=== PATIENT | female | born 1960 | race Caucasian/White ===

== ENCOUNTER 2018-06-27 08:46 | Inpatient (IN) | payer OTHER ==
[2018-06-27] MEDS ORDERED: ASPIRIN 81 MG TABLET, CHEWABLE PO ONE (09:52)
--- NOTE | 2018-06-27 09:55 | ER Document Report ---
ED Medical Screen (RME) - General Chief Complaint: Leg Pain Stated Complaint: LEG PAIN Time Seen by Provider: 06/27/18 09:52 Mode of Arrival: Ambulatory Information source: Patient Notes: This is a 58-year-old female with a history of arthritis, superficial phlebitis who presents to the emergency room with left calf pain and swelling for the past 2 weeks. Patient states she did have increasing dyspnea on exertion for the last week. 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 She was treated at [facility] the end of April for a superficial phlebitis of the right lower extremity with Keflex and Naprosyn. She states the symptoms in the left Started 2 weeks ago. She does have a [id number] history of smoking but quit 6 years ago and states that " her breathing is never been the same since then). She denies any chest pain. - Related Data Allergies/Adverse Reactions: codeine Adverse Reaction (Mild, Verified 06/27/18 08:52) VOMITING Past Medical History Renal/ Medical History: Denies: Hx Peritoneal Dialysis Physical Exam - Vital signs Vitals: Temp Pulse Resp BP Pulse Ox 98.3 F 113 H 20 160/85 H 93 06/27/18 09:20 06/27/18 09:20 06/27/18 09:20 06/27/18 09:20 06/27/18 09:20 Course - Vital Signs Vital signs: Temp Pulse Resp BP Pulse Ox 98.3 F 113 H 20 160/85 H 93 06/27/18 09:20 06/27/18 09:20 06/27/18 09:20 06/27/18 09:20 06/27/18 09:20
--- NOTE | 2018-06-27 10:30 | RADIOLOGY REPORT (SQ) ---
EXAM DESCRIPTION: CHEST SINGLE VIEW COMPLETED DATE/TIME: 06/27/2018 10:16 am REASON FOR STUDY: sob, crook COMPARISON: None. EXAM PARAMETERS: NUMBER OF VIEWS: One view. TECHNIQUE: Single frontal radiographic view of the chest acquired. RADIATION DOSE: NA LIMITATIONS: None. FINDINGS: LUNGS AND PLEURA: No opacities, masses or pneumothorax. No pleural effusion. MEDIASTINUM AND HILAR STRUCTURES: No masses. Contour normal. HEART AND VASCULAR STRUCTURES: Heart normal in size. Normal vasculature. BONES: No acute findings. Degenerative changes in the spine. HARDWARE: None in the chest. OTHER: No other significant finding. IMPRESSION: NO ACUTE RADIOGRAPHIC FINDING IN THE CHEST. TECHNICAL DOCUMENTATION: JOB ID: [id number] [email or web address]- All Rights Reserved Reading location - IP/workstation name: [email or web address]
[2018-06-27 10:45] LABS: ABSOLUTE BASOPHILS # (AUTO) 0.1 10^3/uL (0.0-0.2); ABSOLUTE EOSINOPHILS # (AUTO) 0.3 10^3/uL (0.0-0.6); ABSOLUTE LYMPHOCYTES (AUTO) 2.6 10^3/uL (0.5-4.7); ABSOLUTE MONOCYTES (AUTO) 0.9 10^3/uL (0.1-1.4); ABSOLUTE NEUT (AUTO) 10.6 10^3/uL (1.7-8.2); BASOPHILS % (AUTO) 0.8 % (0-2); EOSINOPHILS % (AUTO) 2.1 % (0-6); HEMATOCRIT 41.9 % (36.0-47.0); HEMOGLOBIN 13.7 g/dL (12.0-15.5); LYMPHOCYTES % (AUTO) 18.2 % (13-45); MEAN CORPUSCULAR HEMOGLOBIN 29.8 pg (27.0-33.4); MEAN CORPUSCULAR HGB CONC 32.6 g/dL (32.0-36.0); MEAN CORPUSCULAR VOLUME 92 fl (80-97); MONOCYTES % (AUTO) 6.1 % (3-13); PLATELET COUNT 201 10^3/uL (150-450); RED BLOOD COUNT 4.58 10^6/uL (3.72-5.28); RED CELL DISTRIBUTION WIDTH 13.5 % (11.5-14.0); SEGMENTED NEUTROPHILS % (AUTO) 72.8 % (42-78); TOTAL CELLS COUNTED % (AUTO) 100 %; WHITE BLOOD COUNT 14.5 10^3/uL (4.0-10.5)
[2018-06-27 11:05] LABS: ALANINE AMINOTRANSFERASE 10 U/L (9-52); ALBUMIN 3.9 g/dL (3.5-5.0); ALKALINE PHOSPHATASE 128 U/L (38-126); ANION GAP 12 (5-19); ASPARTATE AMINO TRANSFERASE 20 U/L (14-36); BILIRUBIN,DIRECT 0.3 mg/dL (0.0-0.4); BILIRUBIN,TOTAL 0.7 mg/dL (0.2-1.3); BLOOD UREA NITROGEN 10 mg/dL (7-20); CARBON DIOXIDE 29 mmol/L (22-30); CHLORIDE 101 mmol/L (98-107); CREATINE KINASE 56 U/L (30-135); GLUCOSE 313 mg/dL (75-110); POTASSIUM 4.2 mmol/L (3.6-5.0); SODIUM 142.4 mmol/L (137-145)
[2018-06-27 11:16] LABS: CREATINE KINASE MB 0.67 ng/mL (<4.55)
[2018-06-27 11:17] LABS: TROPONIN I < 0.012 ng/mL
--- NOTE | 2018-06-27 11:52 | ER Document Report ---
ED Extremity Problem, Lower - General Chief Complaint: Leg Pain Stated Complaint: LEG PAIN Time Seen by Provider: 06/27/18 09:52 Mode of Arrival: Ambulatory Notes: Patient complains of pain and swelling in her left lower leg for about 2 weeks. She recalls no injury or unusual activity. 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 Pain is worse when the patient is up and walking and better when she is recumbent. She says it feels "swollen and tight ". Never had this problem before. Patient has had her left knee injected 3 times back in February and March of this year but not in the past month or more. In April, patient had an "infected vein" at the top of the patient's right knee. She had an ultrasound and it showed the vein without clot in it and she was treated with antibiotics in the problem resolved. Patient also complains of some shortness of breath and dyspnea on exertion for the past week. She said that suddenly began when she got up out of a chair and tried to walk about a week ago and has persisted ever since. Denies any chest pains. Never had any problem with blood clots in her lungs or legs or elsewhere. Not on any regular medications. Denies any fever or chills. Former smoker, stopped about 6 years ago. - Related Data Allergies/Adverse Reactions: codeine Adverse Reaction (Mild, Verified 06/27/18 08:52) VOMITING Past Medical History - General Information source: Patient - Social History Smoking Status: Former Smoker - Stopped 6 years ago Family History: Reviewed & Not Pertinent Patient has suicidal ideation: No Patient has homicidal ideation: No - Past Medical History Cardiac Medical History: Denies: Hx Congestive Heart Failure, Hx Coronary Artery Disease, Hx DVT, Hx Hypertension, Hx Pulmonary Embolism Skin Medical History: Denies Hx Cellulitis Review of Systems - Review of Systems Notes: REVIEW OF SYSTEMS: CONSTITUTIONAL : Denies fever. EENT: Denies eye, ear, nose or mouth or throat pain or other symptoms. CARDIOVASCULAR: Denies chest pain. RESPIRATORY: Denies cough, chest congestion, but has experienced shortness of breath for the past week. See HPI. GASTROINTESTINAL: Denies abdominal pain or nausea, vomiting, or diarrhea. GENITOURINARY: Denies difficulty or painful urinating, urinary frequency, blood in urine. MUSCULOSKELETAL: Denies back or neck pain. Denies joint pain or swelling. See HPI regarding left lower leg. SKIN: Denies rash or skin lesions. NEUROLOGICAL: Denies LOC or altered mental status. Denies headache. Denies sensory loss or motor deficits. ALL OTHER SYSTEMS REVIEWED AND NEGATIVE. Physical Exam - Vital signs Vitals: Temp Pulse Resp BP Pulse Ox 98.3 F 113 H 20 160/85 H 93 06/27/18 09:20 06/27/18 09:20 06/27/18 09:20 06/27/18 09:20 06/27/18 09:20 Interpretation: Tachycardic - Heart rate 113 in triage Notes: PHYSICAL EXAMINATION: GENERAL: Well-appearing, in no acute distress. HEAD: Atraumatic, normocephalic. EYES: Pupils equal round and reactive to light, extraocular movements intact. ENT: oropharynx clear without exudates. Moist mucous membranes. NECK: Normal range of motion, supple. LUNGS: Breath sounds clear and equal bilaterally. HEART: Regular rate and rhythm without murmurs. Patient has many small varicose veins of both lower extremities. ABDOMEN: Soft, nontender. No guarding or rebound. No masses. BACK: No tenderness throughout entire back. EXTREMITIES: I do not see much difference in size between the 2 lower extremities. However, there is notable increased warmth to the touch of the left lower leg compared to the right lower leg. No significant erythema present , however. Patient's tenderness is confined to the back of the left lower leg proximally. Good dorsalis pedis pulse in the left foot. Otherwise, normal range of motion without pain. NEUROLOGICAL: Normal speech, limping gait because of pain. Normal sensory, motor, and reflex exams. Awake, alert, and oriented x3. PSYCH: Normal mood, normal affect. SKIN: Warm, dry, no rashes. Course - Re-evaluation Re-evalutation: 06/27/18 13:08 Spoke with hospitalist who will admit the patient for anticoagulation. CTA being ordered. Radiologist called me with report of the CTA study showing bilateral pulmonary emboli. I contacted Dr. Sandoval at extension [phone] and made her aware of these findings. 06/27/18 19:32 - Vital Signs Vital signs: Temp Pulse Resp BP Pulse Ox 99.3 F 102 H 16 134/62 H 96 06/27/18 15:08 06/27/18 15:42 06/27/18 15:42 06/27/18 15:08 06/27/18 15:42 - Laboratory Result Diagrams: 06/27/18 10:28 06/27/18 10:28 Laboratory results interpreted by me: 06/27/18 06/27/18 10:28 10:28 WBC 14.5 H Absolute Neutrophils 10.6 H Glucose 313 H Alkaline Phosphatase 128 H - Diagnostic Test Radiology reviewed: Image reviewed, Reports reviewed - Patient's venous Doppler shows extensive clot throughout the entire left leg including the superficial saphenous vein. Radiology results interpreted by me: 06/27/18 11:56 Chest x-ray is normal. - EKG Interpretation by Wy EKG shows normal: Sinus rhythm Rate: Tachycardia Voltage: Consistant with LVH Discharge - Discharge Clinical Impression: Deep vein thrombosis (DVT) of left lower extremity Condition: Stable Disposition: ADMITTED INPATIENT Admitting Provider: Hospitalist Unit Admitted: Telemetry
--- NOTE | 2018-06-27 12:32 | RADIOLOGY REPORT (SQ) ---
EXAM DESCRIPTION: VENOUS UNILATERAL LOWER COMPLETED DATE/TIME: 06/27/2018 12:16 pm REASON FOR STUDY: lle paiun and swelling COMPARISON: None. TECHNIQUE: Dynamic and static baum scale and color images acquired of the left leg venous system. Se lected spectral images acquired with additional compression and augmentation maneuvers. The contralat eral common femoral vein and saphenofemoral junction were also imaged. Images stored on PACS. LIMITATIONS: None. FINDINGS: COMMON FEMORAL: Diffuse thrombus. FEMORAL: Diffuse thrombus. POPLITEAL: Diffuse thrombus. CALF VESSELS: Diffuse thrombus. GSV and SSV: Thrombus in the SSV. Patent GSV. ANY DEEP VENOUS INSUFFICIENCY: Not evaluated. ANY EVIDENCE OF POPLITEAL CYST: No. OTHER: No other significant finding. CONTRALATERAL COMMON FEMORAL VEIN AND SAPHENOFEMORAL JUNCTION: Normal phasicity, compression and augmentation. No visualized echogenic material on baum scale. No de fects on color images. IMPRESSION: DIFFUSE DEEP VENOUS THROMBOSIS THROUGHOUT THE LEFT LEG. THERE IS ALSO THROMBUS IN THE S SV. TECHNICAL DOCUMENTATION: JOB ID: [id number] [email or web address]- All Rights Reserved Reading location - IP/workstation name: [email or web address]
--- NOTE | 2018-06-27 13:41 | PDOC H&P ---
History of Present Illness Admission Date/PCP: 06/27/2018 Patient complains of: Left lower extremity pain, dyspnea on exertion History of Present Illness: VENKATESH BASHIR is a 58 year old female former heavy smoker of 30 years quit 6 years ago who presented to ED complaining of worsening, crampy, nonradiating left calf pain for last weeks associated with swelling, dyspnea on exertion and mild nonbloody nonproductive cough. Denies any recent trauma, travel, surgery, immobilization or any history of malignancy, weight changes. Does not take any medication except for occasional ibuprofen on the days that she works. Denies any fever, chest pain, nausea, vomiting, diarrhea, constipation, urinary systems, heat or cold intolerance, skin changes. In ED a left lower extremity ultrasound showed extensive DVT. Hospitalist was consulted for admission. 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 Past Medical History Cardiac Medical History: Denies: Congestive Heart Failure, Coronary Artery Disease, DVT, Hypertension , Pulmonary Embolism Social History Smoking Status: Former Smoker - Stopped 6 years ago Family History Family History: Reviewed & Not Pertinent Parental Family History Reviewed: Yes Children Family History Reviewed: Yes Sibling(s) Family History Reviewed.: Yes Medication/Allergy Allergies/Adverse Reactions: codeine Adverse Reaction (Mild, Verified 06/27/18 08:52) VOMITING Review of Systems Review of Systems: As per HPI Physical Exam Vital Signs: Temp Pulse Resp BP Pulse Ox 98.3 F 113 H 18 138/85 H 94 06/27/18 09:20 06/27/18 09:20 06/27/18 12:01 06/27/18 12:01 06/27/18 12:01 Intake & Output 06/26/18 06/27/18 06/28/18 07:59 06:59 06:59 Weight 138 kg General appearance: PRESENT: morbidly obese Head exam: PRESENT: atraumatic, normocephalic Neck exam: ABSENT: carotid bruit, JVD, lymphadenopathy, thyromegaly Respiratory exam: PRESENT: clear to auscultation cuate. ABSENT: rales, rhonchi, wheezes Cardiovascular exam: PRESENT: RRR. ABSENT: diastolic murmur, rubs, systolic murmur GI/Abdominal exam: PRESENT: normal bowel sounds, soft. ABSENT: distended, guarding, mass, organolmegaly, rebound, tenderness Extremities exam: PRESENT: calf tenderness, other - Negative Homans sign Musculoskeletal exam: PRESENT: full ROM, normal inspection Neurological exam: PRESENT: alert, awake, oriented to person, oriented to place , oriented to time, oriented to situation, CN II-XII grossly intact. ABSENT: motor sensory deficit Skin exam: PRESENT: dry, intact, warm. ABSENT: cyanosis, rash Results Laboratory Results: 06/27/18 10:28 06/27/18 10:28 06/27/18 06/27/18 10:28 10:28 WBC 14.5 H RBC 4.58 Hgb 13.7 Hct 41.9 MCV 92 MCH 29.8 MCHC 32.6 RDW 13.5 Plt Count 201 Seg Neutrophils % 72.8 Lymphocytes % 18.2 Monocytes % 6.1 Eosinophils % 2.1 Basophils % 0.8 Absolute Neutrophils 10.6 H Absolute Lymphocytes 2.6 Absolute Monocytes 0.9 Absolute Eosinophils 0.3 Absolute Basophils 0.1 Sodium 142.4 Potassium 4.2 Chloride 101 Carbon Dioxide 29 Anion Gap 12 BUN 10 Creatinine 0.52 Est GFR ( Amer) > 60 Est GFR (Non-Af Amer) > 60 Glucose 313 H Calcium 9.0 Total Bilirubin 0.7 AST 20 ALT 10 Alkaline Phosphatase 128 H Total Protein 7.0 Albumin 3.9 06/27/18 06/27/18 10:28 10:28 Creatine Kinase 56 CK-MB (CK-2) 0.67 Troponin I < 0.012 Impressions: Chest X-Ray 06/27/18 09:52 IMPRESSION: NO ACUTE RADIOGRAPHIC FINDING IN THE CHEST. Venous Doppler Study 06/27/18 09:53 IMPRESSION: DIFFUSE DEEP VENOUS THROMBOSIS THROUGHOUT THE LEFT LEG. THERE IS ALSO THROMBUS IN THE SSV. Assessment & Plan - Diagnosis (1) Deep vein thrombosis (DVT) of left lower extremity Is this a current diagnosis for this admission?: Yes Plan: Unprovoked. Lower extremity venous Doppler positive for diffuse deep vein thrombosis throughout the left leg and superficial saphenous vein. Mild leukocytosis with normal differentials. CMP within normal type for hyperglycemia. Vitals are stable except for mild tachycardia. EKG shows sinus tachycardia with left ventricular hypertrophy. Negative troponins CTA to rule out PE followed by 2D echo if positive to rule out for any right heart strain. Start on IV therapeutic Lovenox to be transitioned to p.o. anticoagulation. Admit to telemetry. Monitor vitals. (2) Morbid obesity with BMI of 40.0-44.9, adult Is this a current diagnosis for this admission?: Yes Plan: Diet and lifestyle modification. (3) Pre-diabetes Is this a current diagnosis for this admission?: Yes Plan: Will obtain a new A1c. Continue Accu-Chek, diabetic diet. Diabetic education. Diet and lifestyle modification.
[2018-06-27] MEDS ORDERED: GUAIFENESIN SYRP 200 MG/10 ML UDC PO PRN (13:43)
[2018-06-27] MEDS ORDERED: IPRATROPIUM/ALBUTEROL 0.5-2.5 MG/3 ML AMPUL NEB PRN (13:43)
[2018-06-27] MEDS ORDERED: DEXTROSE 50%-WATER 25 GM/50 ML DISP.SYRIN IV PRN ×2 (13:55)
[2018-06-27] MEDS ORDERED: DEXTROSE 40% GEL 15 GM TUBE PO PRN ×2 (13:55)
[2018-06-27] MEDS ORDERED: GLUCAGON,HUMAN RECOMB 1 MG INJ IM PRN (13:55)
[2018-06-27 14:23] LABS: INTERNATIONAL RATION (INR) 1.07; PROTHROMBIN TIME 14.5 SEC (11.4-15.4)
[2018-06-27 14:57] LABS: CHOLESTEROL 125.53 mg/dL (0-200); TRIGLYCERIDES 90 mg/dL (<150)
[2018-06-27 15:07] LABS: DIRECT LDL 83 mg/dL (<100)
[2018-06-27] MEDS: NORMAL SALINE 1000 ML 1,000 ML IV PRN (15:23)
[2018-06-27] MEDS: ACETAMINOPHEN 325 MG TABLET PO PRN (15:53)
[2018-06-27] MEDS: ENOXAPARIN SODIUM INJ 150 MG/1 ML DISP.SYRIN SUBCUT SCH (15:53)
[2018-06-27] MEDS: LANSOPRAZOLE 15 MG TAB.RAP.DR PO SCH (17:38)
[2018-06-27] MEDS ORDERED: ACETAMINOPHEN WITH CODEINE #3 TABLET PO PRN (17:44)
--- NOTE | 2018-06-27 19:38 | RADIOLOGY REPORT (SQ) ---
EXAM DESCRIPTION: CTA CHEST COMPLETED DATE/TIME: 06/27/2018 7:08 pm REASON FOR STUDY: S OB, DVT today on Doppler COMPARISON: None. TECHNIQUE: CT scan of the chest performed using helical scanning technique with dynamic intravenous contrast injection. Images reviewed with lung, soft tissue and bone windows. Reconstructed coronal and sagittal MPR images reviewed. Additional 3 dimensional post-processing performed to develop Maximal Intensity Projection images ([place] P). All images stored on PACS. All CT scanners at this facility use dose modulation, iterative reconstruction, and/or weight based d osing when appropriate to reduce radiation dose to as low as reasonably achievable (ALARA). [facility]: Dose Right [facility]: CareDose [facility]: Dose Right [facility]: Teradose 4D [facility]: [employer] CONTRAST TYPE AND DOSE: contrast/concentration: Isovue mg/ml; Total Contrast Delivered: 84.0 ml; To janneth Saline Delivered: 68.9 ml Contrast bolus adequate for pulmonary arteries and aorta. RENAL FUNCTION: GFR > 60. RADIATION DOSE: CT Rad equipment meets quality standard of care and radiation dose reduction techniq ues were employed. CTDIvol: 39.2 - 66.1 mGy. DLP: 1472 mGy-cm. . LIMITATIONS: None. FINDINGS: LUNGS AND PLEURA: No masses, infiltrates, or pneumothorax. No pleural effusions or pleura l calcifications. AORTA AND GREAT VESSELS: No aneurysm. Contrast bolus not optimized for the aorta. HEART: No pericardial effusion. No significant coronary artery calcifications. PULMONARY ARTERIES: Extensive emboli visualized in the main pulmonary arteries and the majority of th e segmental branches, there is a thin saddle embolus component spanning the pulmonary artery bifurcat ion. HILAR AND MEDIASTINAL STRUCTURES: No identified masses or abnormal nodes. HARDWARE: None in the chest. UPPER ABDOMEN: No significant findings. Limited exam. THYROID AND OTHER SOFT TISSUES: No masses. No adenopathy. BONES: No acute or significant finding. 3D MIPS: Confirm above findings. OTHER: No other significant finding. IMPRESSION: Extensive emboli visualized in the main pulmonary arteries and the majority of the segme ntal branches, there is a thin saddle embolus component spanning the pulmonary artery bifurcation. COMMENT: Results called to the ordering physician at 1930 hours. Results were confirmed and read jayshree braun. Quality ID # [id number]: Final reports with documentation of one or more dose reduction techniques (e.g., Au tomated exposure control, adjustment of the mA and/or kV according to patient size, use of iterative reconstruction technique) TECHNICAL DOCUMENTATION: JOB ID: [id number] [place]-[id number] 2010 [employer]- All Rights Reserved Reading location - IP/workstation name: [email or web address]
--- NOTE | 2018-06-27 22:17 | EKG REPORT ---
SEVERITY:- ABNORMAL ECG - SINUS TACHYCARDIA LEFT VENTRICULAR HYPERTROPHY NONSPECIFIC T ABNORMALITIES, INFERIOR LEADS : Confirmed by: Yamile Lucas MD 27-Jun-2018 22:16:33
[2018-06-28] MEDS: ENOXAPARIN SODIUM INJ 150 MG/1 ML DISP.SYRIN SUBCUT SCH ×3 (00:11→21:35)
[2018-06-28] MEDS: NORMAL SALINE 1000 ML 1,000 ML IV PRN (03:54)
[2018-06-28 05:07] LABS: HEMATOCRIT 36.6 % (36.0-47.0); HEMOGLOBIN 12.4 g/dL (12.0-15.5); MEAN CORPUSCULAR HEMOGLOBIN 30.3 pg (27.0-33.4); MEAN CORPUSCULAR HGB CONC 33.9 g/dL (32.0-36.0); MEAN CORPUSCULAR VOLUME 90 fl (80-97); PLATELET COUNT 165 10^3/uL (150-450); RED BLOOD COUNT 4.09 10^6/uL (3.72-5.28); RED CELL DISTRIBUTION WIDTH 13.5 % (11.5-14.0); WHITE BLOOD COUNT 10.9 10^3/uL (4.0-10.5)
[2018-06-28 05:29] LABS: ALANINE AMINOTRANSFERASE 22 U/L (9-52); ALBUMIN 3.2 g/dL (3.5-5.0); ALKALINE PHOSPHATASE 89 U/L (38-126); ANION GAP 11 (5-19); ASPARTATE AMINO TRANSFERASE 16 U/L (14-36); BILIRUBIN,DIRECT 0.2 mg/dL (0.0-0.4); BILIRUBIN,TOTAL 0.7 mg/dL (0.2-1.3); BLOOD UREA NITROGEN 10 mg/dL (7-20); CALCIUM 8.4 mg/dL (8.4-10.2); CARBON DIOXIDE 26 mmol/L (22-30); CHLORIDE 105 mmol/L (98-107); GLUCOSE 143 mg/dL (75-110); POTASSIUM 4.2 mmol/L (3.6-5.0); SODIUM 141.9 mmol/L (137-145); TOTAL PROTEIN 5.9 g/dL (6.3-8.2)
[2018-06-28] MEDS: LANSOPRAZOLE 15 MG TAB.RAP.DR PO SCH ×2 (05:56→16:51)
[2018-06-28] MEDS: INSULIN LISPRO 100 UNIT/ML 3 ML VIAL SUBCUT PRN (08:16)
[2018-06-28] MEDS ORDERED: ONDANSETRON 4 MG TAB.RAPDIS PO PRN (09:22)
[2018-06-28] MEDS ORDERED: ACETAMINOPHEN WITH CODEINE #3 TABLET PO PRN (09:22)
--- NOTE | 2018-06-28 10:50 | PDOC PROGRESS REPORT ---
Subjective Progress Note for:: 06/28/18 Subjective:: VENKATESH BASHIR is a 58 year old female former heavy smoker of 30 years quit 6 years ago who presented to ED complaining of worsening, crampy, nonradiating left calf pain for last weeks associated with swelling, dyspnea on exertion and mild nonbloody nonproductive cough. Denies any recent trauma, travel, surgery, immobilization or any history of malignancy, weight changes. Does not take any medication except for occasional ibuprofen on the days that she works. Denies any fever, chest pain, nausea, vomiting, diarrhea, constipation, urinary systems, heat or cold intolerance, skin changes. In ED a left lower extremity ultrasound showed extensive DVT. Hospitalist was consulted for admission. 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 Patient is 07/08/2018. No acute events overnight. Patient is resting comfortably in her bed denying any shortness of breath, chest pain, nausea, vomiting, diarrhea, constipation. She is stating that she feels like her left lower extremity is more swollen than the right side however it does not hurt. Reason For Visit: LEFT LOWER EXTREMITY DVT Physical Exam Vital Signs: Temp Pulse Resp BP Pulse Ox 98.6 F 72 16 126/77 H 99 06/28/18 07:28 06/28/18 07:28 06/28/18 07:28 06/28/18 07:28 06/28/18 07:28 Intake & Output 06/27/18 06/28/18 06/29/18 06:59 06:59 06:59 Intake Total 1000 533 Output Total 400 Balance 600 533 Weight 142.2 kg General appearance: PRESENT: no acute distress, morbidly obese, well-developed, well-nourished Respiratory exam: PRESENT: clear to auscultation cuate. ABSENT: rales, rhonchi, wheezes Cardiovascular exam: PRESENT: RRR. ABSENT: diastolic murmur, rubs, systolic murmur Pulses: PRESENT: normal dorsalis pedis pul GI/Abdominal exam: PRESENT: normal bowel sounds, soft. ABSENT: distended, guarding, mass, organolmegaly, rebound, tenderness Extremities exam: PRESENT: full ROM, pedal edema, other - Mild swelling of the left lower extremity. Negative for any tenderness. No erythema or any sign of infection. ABSENT: calf tenderness, clubbing Results Laboratory Results: 06/28/18 04:13 06/28/18 04:13 06/28/18 06/28/18 04:13 04:13 WBC 10.9 H RBC 4.09 Hgb 12.4 Hct 36.6 MCV 90 MCH 30.3 MCHC 33.9 RDW 13.5 Plt Count 165 Sodium 141.9 Potassium 4.2 Chloride 105 Carbon Dioxide 26 Anion Gap 11 BUN 10 Creatinine 0.48 L Est GFR ( Amer) > 60 Est GFR (Non-Af Amer) > 60 Glucose 143 H Calcium 8.4 Total Bilirubin 0.7 AST 16 ALT 22 Alkaline Phosphatase 89 Total Protein 5.9 L Albumin 3.2 L 06/27/18 13:38 Troponin I < 0.012 Impressions: Chest X-Ray 06/27/18 09:52 IMPRESSION: NO ACUTE RADIOGRAPHIC FINDING IN THE CHEST. Venous Doppler Study 06/27/18 09:53 IMPRESSION: DIFFUSE DEEP VENOUS THROMBOSIS THROUGHOUT THE LEFT LEG. THERE IS ALSO THROMBUS IN THE SSV. Chest/Abdomen CTA 06/27/18 13:05 IMPRESSION: Extensive emboli visualized in the main pulmonary arteries and the majority of the segmental branches, there is a thin saddle embolus component spanning the pulmonary artery bifurcation. Assessment & Plan - Diagnosis (1) Deep vein thrombosis (DVT) of left lower extremity Is this a current diagnosis for this admission?: Yes Plan: Unprovoked. No recent trauma, long distance travel, immobilization, surgery, negative family history. She has 1 son and has history of 2 first trimester miscarriages. No history of malignancy, Lower extremity venous Doppler positive for diffuse deep vein thrombosis throughout the left leg and superficial saphenous vein. Leukocytosis improvin. Normal differentials. CMP within normal except for hyperglycemia. Vitals are stable except for mild tachycardia. Continue therapeutic Lovenox. Patient prefers to go home on new anticoagulants rather than Coumadin. Workup for factor V Leyden, prothrombin gene mutation, Antithrombin III deficiency, protein C, protein S deficiency ordered. (2) Pulmonary embolism Is this a current diagnosis for this admission?: Yes Plan: CTA positive for extensive pulmonary embolus. Vitals are stable. Continue therapeutic Lovenox. Early ambulation. Follow-up 2D echo and hyper coagulable state workup. If positive will consult hematology. (3) Morbid obesity with BMI of 40.0-44.9, adult Is this a current diagnosis for this admission?: Yes Plan: Diet and lifestyle modification. (4) Diabetes mellitus, type II Is this a current diagnosis for this admission?: Yes Plan: A1c on admission 9%. Continue Accu-Chek, long-acting insulin, sliding scale. Adjust dosage as needed. Patient can be discharged on metformin upon discharge to follow-up with PCP. Consult diabetic education. (5) Dyslipidemia associated with type 2 diabetes mellitus Is this a current diagnosis for this admission?: Yes Plan: ASCVD more than 9%. Positive risk factors such as diabetes positive history of CAD and a stroke in first degree relatives. Will start on high intensity statins. Follow-up with PCP for evaluation of LFTs.
[2018-06-28] MEDS: ASPIRIN 81 MG TABLET, CHEWABLE PO SCH (11:06)
--- NOTE | 2018-06-28 12:33 | XCELERA REPORT ---
[address] [address] Transthoracic Echocardiogram Report Name: VENKATESH BASHIR Age: 58 yrs Gender: Female : 1960 Patient Status: Inpatient Patient Location: [address] [place], [place] [address] Study Date: 06/28/2018 10:29 AM Height: 66 in Weight: 300 lb BSA: 2.4 m2 Procedure: A complete two-dimensional transthoracic echocardiogram was performed (2D, M-mode, spectral and color flow Doppler). The study was technically adequate with some images being suboptimal in quality. Reason For Study: Large PE Ordering Physician: VLAD DIANA Performed By: Fariba Barillas Interpretation Summary The left ventricular ejection fraction is normal. There is borderline concentric left ventricular hypertrophy. The left ventricle is grossly normal size. Doppler measurements suggest pseudonormalized left ventricular relaxation, which is associated with grade II/IV or mild to moderate diastolic dysfunction Wall motion cannot be accurately commented on, but no definite regional wall motion abnormalities noted. The right ventricular systolic function is borderline reduced. Borderline right ventricular enlargement. The right atrium is normal in size Borderline left atrial enlargement. There is a mild amount of mitral regurgitation There is no mitral valve stenosis. There is no aortic valve stenosis No aortic regurgitation is present. There is a trace or physiologic amount of tricuspid regurgitation Tricuspid regurgitation jet envelope not well defined to measure RV systolic pressure accurately. The inferior vena cava appeared normal and decreased < 50% with respiration (RAP 10-15 mmHg) There is no pericardial effusion. MMode/2D Measurements & Calculations RVDd: 3.6 cm LVIDd: 6.0 cm FS: 29.3 % Ao root diam: 2.9 cm IVSd: 1.0 cm LVIDs: 4.2 cm EDV(Teich): 178.5 ml Ao root area: 6.4 cm2 LVPWd: 0.97 cm ESV(Teich): 79.7 ml LA dimension: 3.6 cm EF(Teich): 55.4 % Doppler Measurements & Calculations MV E max meagan: MV P1/2t max meagan: Ao V2 max: LV V1 max P.6 cm/sec 69.1 cm/sec 135.7 cm/sec 4.1 mmHg MV A max meagan: MV P1/2t: 62.5 msec Ao max PG: LV V1 max: 94.8 cm/sec MVA(P1/2t): 3.5 cm2 7.4 mmHg 101.2 cm/sec MV E/A: 0.72 MV dec slope: 324.0 cm/sec2 MV dec time: 0.23 sec PA V2 max: MV P1/2t-pr_phl: 79.5 cm/sec 62.5 msec PA max P.5 mmHg Left Ventricle The left ventricle is grossly normal size. There is borderline concentric left ventricular hypertrophy. The left ventricular ejection fraction is normal. Doppler measurements suggest pseudonormalized left ventricular relaxation, which is associated with grade II/IV or mild to moderate diastolic dysfunction. Wall motion cannot be accurately commented on, but no definite regional wall motion abnormalities noted. Right Ventricle Borderline right ventricular enlargement. There is normal right ventricular wall thickness. The right ventricular systolic function is borderline reduced. Atria The right atrium is normal in size. Borderline left atrial enlargement. Interarterial septum not well visualized and not well dopplered. Cannot comment on ASD/PFO presence. Mitral Valve The mitral valve is grossly normal. There is no mitral valve stenosis. There is a mild amount of mitral regurgitation. Aortic Valve The aortic valve is not well visualized secondary to technical limitations. There is no aortic valve stenosis. No aortic regurgitation is present. Tricuspid Valve The tricuspid valve is not well visualized secondary to technical limitations. There is no tricuspid stenosis. There is a trace or physiologic amount of tricuspid regurgitation. Tricuspid regurgitation jet envelope not well defined to measure RV systolic pressure accurately. Pulmonic Valve The pulmonic valve is not well visualized. Great Vessels The aortic root is not well visualized but is probably normal size. The inferior vena cava appeared normal and decreased < 50% with respiration (RAP 10-15 mmHg). Effusions There is no pericardial effusion. : VLAD DIANA > Chepe Carrillo
[2018-06-28 14:43] LABS: APPEARANCE,URINE SLIGHTLY-CLOUDY; BILIRUBIN,URINE NEGATIVE (NEGATIVE); COLOR,URINE YELLOW; GLUCOSE, URINE 50 mg/dL (NEGATIVE); KETONES,URINE TRACE mg/dL (NEGATIVE); LEUKOCYTE ESTERASE,URINE NEGATIVE (NEGATIVE); NITRITE,URINE NEGATIVE (NEGATIVE); PROTEIN,URINE NEGATIVE (NEGATIVE); URINE SPECIFIC GRAVITY 1.024
[2018-06-28] MEDS: ATORVASTATIN CALCIUM 40 MG TABLET PO SCH (21:33)
[2018-06-28] MEDS: ACETAMINOPHEN 325 MG TABLET PO PRN (21:34)
[2018-06-28] MEDS ORDERED: ATORVASTATIN CALCIUM 20 MG TABLET PO SCH (22:00)
[2018-06-28] MEDS ORDERED: INSULIN GLARGINE,HUM.REC.ANLOG 300 UNIT/3 ML INSULN.PEN SUBCUT SCH ×2 (22:00)
[2018-06-29] MEDS: LANSOPRAZOLE 15 MG TAB.RAP.DR PO SCH (05:15)
[2018-06-29] MEDS: ASPIRIN 81 MG TABLET, CHEWABLE PO SCH (09:40)
[2018-06-29] MEDS: ACETAMINOPHEN 325 MG TABLET PO PRN ×2 (09:49→21:37)
[2018-06-29] MEDS ORDERED: APIXABAN 5 MG TABLET PO SCH (10:00)
--- NOTE | 2018-06-29 11:46 | CONSULTATION REPORT E ---
Consultation Report NAME: VENKATESH BASHIR : 1960 AGE: 58Y DATE: 06/28/2018 ROOM: 319 A TO: SANDER MAYORGA M.D. FROM: THELMA PRADHAN M.D. Requesting Physician HISTORY OF PRESENT ILLNESS: The patient is a 58-year-old female admitted yesterday because of increased shortness of breath. She claims that she is gradually becoming more short of breath over the last 1 or 2 weeks and she developed severe left calf pain and left lower extremity swelling over the last 2 to 3 days. The few hours prior to admission dyspnea worsened with chest pain; thus, she went to the Emergency Room and was admitted. Patient had a chest CTA showing large blood clots in the main pulmonary arteries, more on the right than on the left side. The patient was started on anticoagulation. She had an echo done midnight last night showing absence of right ventricle overload or Wing sign. The right ventricle appeared normal. Patient denies any fever, chills, increased cough or purulent sputum production, or hemoptysis. PAST MEDICAL HISTORY: Congestive heart failure, coronary artery disease, recent DVT, hypertension, and pulmonary embolism. SOCIAL HISTORY: The patient was a smoker, stopped over 6 years ago. FAMILY HISTORY: Denies any significant family history. ALLERGIES: CODEINE causing vomiting. REVIEW OF SYSTEMS: CONSTITUTIONAL: No fever or chills. EYES: No jaundice or pallor. EARS, NOSE, AND THROAT: No ear drainage noted. No nasal discharge. HEAD AND NECK: No neck pain. RESPIRATORY: Complains about increasing paroxysmal nocturnal dyspnea and chest tightness. Denies any increased cough, purulent sputum production, or hemoptysis. CARDIAC: No history of angina. Complains of chest tightness and high blood pressure. ABDOMEN: Denies any nausea, vomiting, or diarrhea. No dysuria or hematuria. EXTREMITIES: Left lower extremity with calf tenderness. PHYSICAL EXAMINATION: GENERAL: The patient is awake, alert, coherent, oriented x3. VITAL SIGNS: Afebrile (but distressed with temperature 98.9 with a T-max of 98.9). Pulse rate 79, blood pressure 134/74, respiratory rate is 18, saturation 100% on room air. EYES: No jaundice or pallor. EARS, NOSE, AND THROAT: No ear drainage. No nasal discharge. CHEST AND LUNGS: No wheezing, no rhonchi, no coarse crackles. CARDIOVASCULAR: S1, S2 distinct. Normal rate, regular rhythm. ABDOMEN: Flabby. Positive bowel sounds. Soft, nondistended. EXTREMITIES: No joint swelling. Left calf swelling and tenderness. No cellulitis. LABORATORY: CBC done today showed a white count of 10.9, hemoglobin 12.4, hematocrit is 36.6, platelet count is 165. PT done yesterday was 14.5 and INR was 1.07. Chemistry done today shows sodium is 141, potassium is 4.2, chloride 105, CO2 26, BUN 10, creatinine 0.48, glucose 143, calcium is 8.4. SGOT is 16, SGPT 22, alkaline phos 89, total protein 5.9, albumin is 3.2. Chest CT scan showing large blood clot in the main pulmonary arteries, more on the right than on the left side. ASSESSMENT: 1. Acute pulmonary embolism, currently appears hemodynamically stable. Symptoms improving. Currently on subcutaneous Lovenox. 2. Morbid obesity, possible obesity hypoventilation syndrome. PLAN AND RECOMMENDATIONS: 1. Continue Lovenox for the next 2 to 5 days. If patient remains hemodynamically stable, may start the patient on Xarelto p.o. or Eliquis p.o. as an outpatient. 2. Pulmonary Clinic followup in 1 to 2 weeks following hospital discharge. DICTATING PHYSICIAN: SANDER MAYORGA MD,KRISHAN,MPH [id number] PHY#: [id number] ID: [id number] JOB#: [id number] ACCT: [id number] cc:SANDER MAYORGA M.D. > [facility] SYSTEM[facility]
--- NOTE | 2018-06-29 16:37 | PDOC PROGRESS REPORT ---
Subjective Progress Note for:: 06/29/18 Subjective:: Ms. Castrejon is a 58 year old female former heavy smoker of 30 years quit 6 years ago who initially presented with left leg pain and increasing shortness of breath. Patient was noted to have an acute left lower extremity DVT and extensive bilateral PE. Patient was started on Lovenox. No acute event overnight. Patient says that her breathing is about the same from yesterday but this is improved compared to the past few days. She denies chest pain or palpitations. When patient ambulated today, she reported mild exertional dyspnea and desaturated to 86% on room air. She says her left lower extremity swelling has improved and feels less tight. Reason For Visit: LEFT LOWER EXTREMITY DVT Physical Exam Vital Signs: Temp Pulse Resp BP Pulse Ox 98.7 F 78 16 144/80 H 93 06/29/18 12:46 06/29/18 12:46 06/29/18 12:46 06/29/18 12:46 06/29/18 12:46 Intake & Output 06/28/18 06/29/18 06/30/18 06:59 06:59 06:59 Intake Total 1000 1107 736 Output Total 400 650 Balance 600 457 736 Weight 313 lb 7.957 oz 312 lb 9.848 oz General appearance: PRESENT: no acute distress, well-developed, well-nourished Head exam: PRESENT: atraumatic, normocephalic Eye exam: PRESENT: conjunctiva pink, EOMI, PERRLA. ABSENT: scleral icterus Ear exam: PRESENT: normal external ear exam Mouth exam: PRESENT: moist, tongue midline Neck exam: ABSENT: carotid bruit, JVD, lymphadenopathy, thyromegaly Respiratory exam: PRESENT: clear to auscultation cuate. ABSENT: rales, rhonchi, wheezes Cardiovascular exam: PRESENT: RRR. ABSENT: diastolic murmur, rubs, systolic murmur Pulses: PRESENT: normal dorsalis pedis pul GI/Abdominal exam: PRESENT: normal bowel sounds, soft. ABSENT: distended, guarding, mass, organolmegaly, rebound, tenderness Rectal exam: PRESENT: deferred Extremities exam: PRESENT: pedal edema - Chronic bipedal edema with the left leg just slightly swollen more than the right Neurological exam: PRESENT: alert, awake, oriented to person, oriented to place , oriented to time, oriented to situation, CN II-XII grossly intact. ABSENT: motor sensory deficit Results Laboratory Results: 06/28/18 04:13 06/28/18 04:13 06/27/18 13:38 Troponin I < 0.012 Impressions: Chest X-Ray 06/27/18 09:52 IMPRESSION: NO ACUTE RADIOGRAPHIC FINDING IN THE CHEST. Venous Doppler Study 06/27/18 09:53 IMPRESSION: DIFFUSE DEEP VENOUS THROMBOSIS THROUGHOUT THE LEFT LEG. THERE IS ALSO THROMBUS IN THE SSV. Chest/Abdomen CTA 06/27/18 13:05 IMPRESSION: Extensive emboli visualized in the main pulmonary arteries and the majority of the segmental branches, there is a thin saddle embolus component spanning the pulmonary artery bifurcation. Assessment & Plan - Diagnosis (1) Pulmonary embolism Is this a current diagnosis for this admission?: Yes Plan: Patient has extensive PE on the main pulmonary arteries and a small saddle PE on the bifurcation. She has received a dose of Eliquis this morning. Will switch her back to Lovenox with at least 5 days of parenteral anticoagulation before switching back to PO per pulm recommendations. There is sign of mild RV strain on echo. Patient may benefit from EKOS procedure. So far, she has been hemodynamically stable with BP in the 140/80s. She saturates at 93% on room air at rest but desaturates to 86% on ambulation. Called IR specialist at [facility] and discussed with Dr. Ballesteros who recommended continuous monitoring of the patient's hemodynamic status in the next 24 hrs. If she has persistent hypoxia or hemodynamic instability, she may really benefit from procedure. Discussed with patient who is hesitant about being transferred at the moment. She says she will rather think about the risks and benefits of the procedure first tonight before deciding. She says she would prefer to go to [facility] if decides to be transferred later. (2) Deep vein thrombosis (DVT) of left lower extremity Is this a current diagnosis for this admission?: Yes Plan: As per #1. Hypercoagulable work-up have been sent and are still pending. - Time Time Spent with patient: 25-34 minutes
[2018-06-29 16:39] LABS: FACTOR X ACTIVITY 133 % (76-183)
[2018-06-29] MEDS: TRIAMCINOLONE ACETONIDE 0.025% CREAM 15 GM TP SCH ×2 (16:52→21:34)
[2018-06-29] MEDS: INSULIN LISPRO 100 UNIT/ML 3 ML VIAL SUBCUT PRN (16:58)
[2018-06-29] MEDS: ATORVASTATIN CALCIUM 40 MG TABLET PO SCH (21:35)
[2018-06-29] MEDS: ENOXAPARIN SODIUM INJ 150 MG/1 ML DISP.SYRIN SUBCUT SCH (21:37)
[2018-06-29] MEDS ORDERED: INSULIN GLARGINE,HUM.REC.ANLOG 300 UNIT/3 ML INSULN.PEN SUBCUT SCH (22:00)
[2018-06-30 05:10] LABS: HEMATOCRIT 39.5 % (36.0-47.0); HEMOGLOBIN 13.6 g/dL (12.0-15.5); MEAN CORPUSCULAR HEMOGLOBIN 30.7 pg (27.0-33.4); MEAN CORPUSCULAR HGB CONC 34.5 g/dL (32.0-36.0); MEAN CORPUSCULAR VOLUME 89 fl (80-97); PLATELET COUNT 216 10^3/uL (150-450); RED BLOOD COUNT 4.44 10^6/uL (3.72-5.28); RED CELL DISTRIBUTION WIDTH 13.1 % (11.5-14.0); WHITE BLOOD COUNT 10.3 10^3/uL (4.0-10.5)
[2018-06-30] MEDS: LANSOPRAZOLE 15 MG TAB.RAP.DR PO SCH (05:28)
[2018-06-30 05:56] LABS: APPEARANCE,URINE CLEAR; BILIRUBIN,URINE NEGATIVE (NEGATIVE); COLOR,URINE YELLOW; GLUCOSE, URINE NEGATIVE (NEGATIVE); KETONES,URINE NEGATIVE (NEGATIVE); LEUKOCYTE ESTERASE,URINE TRACE (NEGATIVE); NITRITE,URINE NEGATIVE (NEGATIVE); PROTEIN,URINE NEGATIVE (NEGATIVE); URINE SPECIFIC GRAVITY 1.009; UROBILINOGEN,URINE NEGATIVE mg/dL (<2.0)
[2018-06-30 07:02] LABS: ANTITHROMBIN III ACTIVITY 91 % (75-135); FACTOR XI ACTIVITY 113 % (60-150); PROTEIN S FREE 124 % (57-157); PROTEIN S FUNCTIONAL 106 % (63-140); PROTEIN S TOTAL 100 % (60-150)
[2018-06-30] MEDS: ENOXAPARIN SODIUM INJ 150 MG/1 ML DISP.SYRIN SUBCUT SCH (09:35)
[2018-06-30] MEDS: ASPIRIN 81 MG TABLET, CHEWABLE PO SCH (09:36)
[2018-06-30] MEDS: TRIAMCINOLONE ACETONIDE 0.025% CREAM 15 GM TP SCH (09:37)
--- NOTE | 2018-06-30 14:08 | PDOC TRANSFER SUMMARY ---
General Admission Date/PCP: 06/27/18 13:17 Resuscitation Status: Full Code - Transfer Diagnosis (1) Pulmonary embolism Is this a current diagnosis for this admission?: Yes (2) Deep vein thrombosis (DVT) of left lower extremity Is this a current diagnosis for this admission?: Yes - Transfer Medications Home Medications: No Home Medications 06/27/18 Transfer Medications: Current Medications Acetaminophen (Tylenol 325 Mg Tablet) 650 mg PO Q4HP PRN PRN Reason: pain or temp greater than 101F Stop: 07/27/18 13:42 Last Admin: 06/29/18 21:37 Dose: 650 mg Acetaminophen/Codeine Phosphate (Tylenol #3 Tablet) 1 each PO Q4HP PRN PRN Reason: FOR PAIN SCALE 3-4 Stop: 07/05/18 09:21 Albuterol/Ipratropium (Duoneb 3 Ml Ampul) 3 ml NEB RTQ4HP PRN PRN Reason: SHORTNESS OF BREATH Stop: 07/27/18 13:42 Aspirin (Aspirin 81 Mg Chewable Tablet) 81 mg PO DAILY ABDIRAHMAN Stop: 07/28/18 09:59 Last Admin: 06/30/18 09:36 Dose: 81 mg Atorvastatin Calcium (Lipitor 40 Mg Tablet) 40 mg PO QHS ABDIRAHMAN Stop: 07/28/18 21:59 Last Admin: 06/29/18 21:35 Dose: 40 mg Dextrose (Dextrose Inj 50% Syringe (25 Gm/50 Ml)) 12.5 gm IV PRN PRN; Protocol PRN Reason: FOR BG 50-69 IN ALERT PATIENT Stop: 07/27/18 13:54 Dextrose (Dextrose Inj 50% Syringe (25 Gm/50 Ml)) 25 gm IV PRN PRN; Protocol PRN Reason: PER PROTOCOL Stop: 07/27/18 13:54 Glucagon (Glucagen Inj 1 Mg Vial) 1 mg IM PRN PRN; Protocol PRN Reason: Evaluate for BG < 70 Stop: 07/27/18 13:54 Glucose (Glutose 40% Gel 15 Gm Tube) 15 gm PO PRN PRN; Protocol PRN Reason: FOR BG 50-69 IN ALERT PATIENT Stop: 07/27/18 13:54 Glucose (Glutose 40% Gel 15 Gm Tube) 30 gm PO PRN PRN; Protocol PRN Reason: FOR BG < 50 IN ALERT PATIENT Stop: 07/27/18 13:54 Guaifenesin (Robitussin Syrup 200 Mg/10 Ml Ud Cup) 200 mg PO Q4HP PRN PRN Reason: COUGH Stop: 07/27/18 13:42 Heparin Sodium (Porcine) (Heparin Inj 1,000 Unit/Ml 10 Ml Vial) 0 - 15,000 unit IV .BOLUS PER PROTOCOL PRN; Protocol PRN Reason: RESPOND TO aPTT VALUE Stop: 07/30/18 16:24 Heparin Sodium/Dextrose (Heparin Rtu 25,000 Unit/250 Ml D5w Premix) 25,000 unit in 250 mls @ 0 mls/hr IV CONTINUOUS PRN; Protocol; Titrate PRN Reason: THIS MED IS NOT "PRN" Stop: 07/30/18 19:59 Insulin Glargine (Lantus Insulin Inj 300 Unit/3 Ml Pen) 5 unit SUBCUT QHS [facility] Stop: 07/28/18 21:59 Last Admin: 06/29/18 21:35 Dose: 5 units Insulin Human Lispro (Humalog Insulin 100 Unit/1 Ml 3 Ml Vial) 0 - 12 unit SUBCUT ACHSP PRN; Protocol PRN Reason: PER PROTOCOL Stop: 07/27/18 13:54 Last Admin: 06/29/18 16:58 Dose: 2 unit Lansoprazole (Prevacid 15 Mg Odt Tablet) 15 mg PO BID@0600,1700 [facility] Stop: 07/27/18 16:59 Last Admin: 06/30/18 05:28 Dose: Not Given Ondansetron HCl (Zofran Odt 4 Mg Tablet) 4 mg PO Q4HP PRN PRN Reason: FOR NAUSEA/VOMITING Stop: 07/28/18 09:21 Sodium Chloride (Saline Flush 2.5 Ml Monoject Prefil Syrin) 2.5 ml IV Q8 [facility] Stop: 07/27/18 13:59 Last Admin: 06/30/18 05:28 Dose: Not Given Triamcinolone Acetonide (Aristocort 0.025% Cream 15 Gm) 1 applic TP Q12 [facility] Stop: 07/29/18 13:59 Last Admin: 06/30/18 09:37 Dose: 1 applic - Allergies Allergies/Adverse Reactions: codeine Adverse Reaction (Mild, Verified 06/27/18 08:52) VOMITING Hospital Course Hospital Course: Ms. Castrejon is a 58 year old female, diabetes mellitus currently not taking medication (A1c of 9.0 on this admission), former heavy smoker of 30 years quit 6 years ago who initially presented with left leg pain and increasing shortness of breath. Patient was noted to have an acute extensive left lower extremity DVT and extensive bilateral PE with saddle embolus. Chest CTA results: extensive emboli in the main pulmonary arteries and the majority of the segmental branches with a thin saddle embolus spanning the pulmonary artery. US Duplex of the LLE: diffuse deep venous thrombosis throughout the left leg with a thrombus on the saphenofemoral junction. She was started on Lovenox upon admission. She denies family history of VTE but says that she has been mostly immobile for the past 3 weeks at home. She presented with a HR of 113, BP 130/80, sats at 91% on room air. Her echocardiogram came back with signs of RV strain and revealed slightly reduced right ventricular function and slightly dilated RV. Patient is saturating at >95% on 2L of NC at rest but does desaturate to 84% upon ambulation. She was initially accepted at [facility] for possible EKOS but patient later insisted on going to [facility] instead. Discussed with [facility] IR airport operations manager, Dr. Alvarenga who recommended systemic TPA instead and possible IVC filter placement. She will be switched to a heparin drip. Discussed with [facility] receiving terrazzo installer, Dr. Zelaya who accepted the transfer. Physical Exam Vital Signs: Temp Pulse Resp BP Pulse Ox 98.9 F 89 18 152/77 H 94 06/30/18 11:42 06/30/18 11:42 06/30/18 11:42 06/30/18 11:42 06/30/18 11:42 Intake & Output 06/29/18 06/30/18 07/01/18 06:59 06:59 06:59 Intake Total 1107 1223 237 Output Total 650 0 Balance 457 1223 237 Weight 312 lb 9.848 oz 306 lb 10.608 oz General appearance: PRESENT: no acute distress, well-developed, well-nourished Head exam: PRESENT: atraumatic, normocephalic Eye exam: PRESENT: conjunctiva pink, EOMI, PERRLA. ABSENT: scleral icterus Ear exam: PRESENT: normal external ear exam Mouth exam: PRESENT: moist, tongue midline Neck exam: ABSENT: carotid bruit, JVD, lymphadenopathy, thyromegaly Respiratory exam: PRESENT: clear to auscultation cuate. ABSENT: rales, rhonchi, wheezes Cardiovascular exam: PRESENT: RRR. ABSENT: diastolic murmur, rubs, systolic murmur Pulses: PRESENT: normal dorsalis pedis pul GI/Abdominal exam: PRESENT: normal bowel sounds, soft. ABSENT: distended, guarding, mass, organolmegaly, rebound, tenderness Rectal exam: PRESENT: deferred Extremities exam: PRESENT: full ROM, +2 edema - left slightly more edematous than the right leg. ABSENT: calf tenderness, clubbing Neurological exam: PRESENT: alert, awake, oriented to person, oriented to place , oriented to time, oriented to situation, CN II-XII grossly intact. ABSENT: motor sensory deficit Results Laboratory Results: 06/30/18 04:18 06/28/18 04:13 06/30/18 06/30/18 04:18 04:20 WBC 10.3 RBC 4.44 Hgb 13.6 Hct 39.5 MCV 89 MCH 30.7 MCHC 34.5 RDW 13.1 Plt Count 216 Urine Color YELLOW Urine Appearance CLEAR Urine pH 6.0 Ur Specific [place] 1.009 Urine Protein NEGATIVE Urine Glucose (UA) NEGATIVE Urine Ketones NEGATIVE Urine Blood NEGATIVE Urine Nitrite NEGATIVE Ur Leukocyte Esterase TRACE H Urine WBC (Auto) 7 Urine RBC (Auto) 1 06/27/18 13:38 Troponin I < 0.012 Impressions: Chest X-Ray 06/27/18 09:52 IMPRESSION: NO ACUTE RADIOGRAPHIC FINDING IN THE CHEST. Venous Doppler Study 06/27/18 09:53 IMPRESSION: DIFFUSE DEEP VENOUS THROMBOSIS THROUGHOUT THE LEFT LEG. THERE IS ALSO THROMBUS IN THE SSV. Chest/Abdomen CTA 06/27/18 13:05 IMPRESSION: Extensive emboli visualized in the main pulmonary arteries and the majority of the segmental branches, there is a thin saddle embolus component spanning the pulmonary artery bifurcation.
[2018-06-30 14:17] LABS: INTERNATIONAL RATION (INR) 1.16; PROTHROMBIN TIME 15.4 SEC (11.4-15.4)
[2018-06-30 14:18] LABS: PARTIAL THROMBOPLASTIN TIME 44.4 SEC (23.5-35.8)
[2018-06-30] MEDS ORDERED: HEPARIN SOD (PORCINE) 1,000 UNIT/ML 10 ML VIAL IV PRN (16:25)
[2018-06-30 16:30] VITALS: BP 134/62
--- NOTE | 2018-06-30 17:16 | PROGRESS NOTE E ---
Progress Note NAME: VENKATESH BASHIR : 1960 AGE: 58Y DATE: 06/30/2018 ROOM: 319 SUBJECTIVE: Patient is a 58-year-old female who came in with acute pulmonary embolism, large, more on the right than on the left side. The patient has started Lovenox subcu, adjusted to body weight. The patient has been stable, feeling better. Blood pressure has been stable over the last 2 to 3 days. No hemoptysis. No chest pain. No worsening dyspnea. The patient currently is transferred to [facility] for further evaluation for possible TPA, pulmonary catheter based, and possible IVC filter placement. The patient also had DVT involving the left leg and thrombus in the superficial saphenous vein. OBJECTIVE: GENERAL: Patient is awake, alert, afebrile, oriented x3. VITAL SIGNS: Blood pressure of 150/77, heart rate of 89, temperature is 98.9 with a T-max of 98.9, respiratory rate of 18, saturation is 94% on room air. EYES: No jaundice or pallor. EARS, NOSE AND THROAT: No ear drainage, redness or discharge. CHEST AND LUNGS: No wheezing. No rhonchi. No coarse crackles. CARDIOVASCULAR: S1, S2 distinct. Normal rate, regular rhythm. ABDOMEN: Flabby. Positive bowel sounds. Soft, nondistended, nontender. EXTREMITIES: Swelling, left leg. LABORATORY DATA: A CBC done today showed white count of 10.3; hemoglobin is 13.6; hematocrit is 39.5; and platelet count is 216. PT/PTT done today showed PT of 15.4, INR is 1.16, and PTT of 14.4. Patient has factor VIII activity elevated at 192. Normal is 57 to 163. ASSESSMENT: 1. PULMONARY EMBOLISM, LARGE, RIGHT PULMONARY ARTERY WITH A SADDLE EMBOLUS COMPONENT ON THE LEFT SIDE, ACUTE; CURRENTLY HEMODYNAMICALLY STABLE. 2. MORBID OBESITY. 3. LEFT LOWER EXTREMITY DVT. PLAN AND RECOMMENDATIONS: 1. Continue anticoagulation, either heparin or Lovenox. 2. The patient is currently being transferred to [facility] for further evaluation for possible catheter-based thrombolytic therapy and possible IVC filter placement. 3. Recommend pulmonary clinic followup after discharge from [facility]. Patient is planning to see and follow up with a bag sewer ( from [place], [place]) - Dr Mckenzie. DICTATING PHYSICIAN: SANDER MAYORGA MD,KRISHAN,MPH [id number] PHY#: [id number] ID: [id number] JOB#: [id number] ACCT: [id number] cc: > MTDD
[2018-06-30] MEDS ORDERED: HEPARIN SODIUM,PORCINE/D5W 25,000 UNIT/250 ML RTUINJ IV PRN (20:00)
== END 2018-06-30 15:54 | disposition short-term general hospital (02) | DRG 176 ==
LOC: ER 08:46 → EH 13:17 → 4N 14:59 → 3W 20:42
PROVIDERS: ADMIT Emergency Medicine; ATTEND Emergency Medicine
DX: I26.92 Saddle embolus of pulmonary artery without acute cor pulmonale (principal); I82.4Z2 Acute embolism and thrombosis of unspecified deep veins of left distal lower extremity; E66.2 Morbid (severe) obesity with alveolar hypoventilation; Z68.42 Body mass index [BMI] 45.0-49.9, adult; E11.65 Type 2 diabetes mellitus with hyperglycemia; E78.5 Hyperlipidemia, unspecified; M79.662 Pain in left lower leg; Z87.891 Personal history of nicotine dependence
CPT/HCPCS: 36415; 71045; 71275; 80053; 80061; 81001; 81241; 82272; 82550; 82553; 82962; 83036; 84484; 85025; 85027; 85210; 85240; 85260; 85270; 85300; 85305; 85306; 85610; 85730; 93005; 93010; 93306; 93971; 99285; J1815; J3490; J7030